=== PATIENT | female | born 1995 | race Caucasian/White ===

== ENCOUNTER 2017-07-01 07:38 | Emergency (ER) | payer OTHER ==
[~2017-07-01] VITALS: Ht 165.1 cm; Wt 90.9 kg
[~2017-07-01 07:38] MED LIST: AMOXICILLIN 8751 TAB PO; NO HOME MEDICATIONS; SUDAFED 12HR120 MG PO; TYLENOL #3 301 UDTAB PO; ZYRTEC5 MG PO
[2017-07-01 07:41] VITALS: BP 122/81; TEMP 99.8
[2017-07-01 08:16] LABS: INFLUENZA A POSITIVE; INFLUENZA B NEGATIVE
[2017-07-01] MEDS ORDERED: TAMIFLU 75MG75 MG PO (08:29)
[2017-07-01 08:37] VITALS: PULSE 90
== END 2017-07-01 08:39 | disposition home or self-care (01) ==
LOC: COL.ER 07:38
PROVIDERS: Emergency Medicine
DX: J10.1 Influenza due to other identified influenza virus with other respiratory manifestations (principal)

== ENCOUNTER → 2018-01-24 | Outpatient (CLI) | payer BC ==
[~2018-01-24] MED LIST changes: +TAMIFLU 75MG75 MG PO
== END ==
LOC: COL.RAD 13:57
DX: R93.8 Abnormal findings on diagnostic imaging of other specified body structures (principal)